=== PATIENT | male | born 2005 | race African-American/Black ===

== ENCOUNTER 2025-03-08 13:14 | Emergency (ER) | payer OTHER ==
[~2025-03-08] VITALS: Ht 167.6 cm; Wt 68.6 kg
[2025-03-08] MEDS ORDERED: NAPR-837 PO (14:20)
[2025-03-08] MEDS ORDERED: METH-1165 PO (14:20)
[2025-03-08] MEDS: NAPROXEN 250 MG TAB PO ONE (14:25)
[2025-03-08 14:35] VITALS: BP 112/55; TEMP 98.4; O2SAT 96
== END 2025-03-08 14:42 | disposition home or self-care (01) ==
LOC: M ED 13:14
DX: S39.012A Strain of muscle, fascia and tendon of lower back, initial encounter (principal); X50.0XXA Overexertion from strenuous movement or load, initial encounter; Z79.1 Long term (current) use of non-steroidal anti-inflammatories (NSAID); Z79.899 Other long term (current) drug therapy; Y92.009 Unspecified place in unspecified non-institutional (private) residence as the place of occurrence of the external cause; Y93.89 Activity, other specified; Y99.9 Unspecified external cause status

== ENCOUNTER 2025-04-22 09:43 | Emergency (ER) | payer OTHER ==
[~2025-04-22] VITALS: Ht 172.7 cm; Wt 67.9 kg
[~2025-04-22 09:43] MED LIST: METH-1165 PO; NAPR-837 PO
[2025-04-22] MEDS ORDERED: HOME MED LIST COMPLETE! XX SCH (11:15)
[2025-04-22 11:45] LABS: BASO # 0.0 10^3/uL (0.0-0.2); BASO % 0.1 % (0.0-1.0); EOS # 0.0 10^3/uL (0.0-0.5); EOS % 0.0 % (0.0-3.0); LYMPH # 0.4 10^3/uL (1.5-5.0); LYMPH % 4.6 % (24.0-44.0); MONO # 0.5 10^3/uL (0.0-0.8); MONO % 5.4 % (2.0-8.0); NEUTROPHILS # 7.8 10^3/uL (1.5-8.5); NEUTROPHILS % 89.7 % (36.0-66.0); PLATELET COUNT, AUTOMATED 181 10^3/uL (150-450)
[2025-04-22] MEDS: KETOROLAC 30 MG/ML 1 ML VIAL IV ONE (11:45)
[2025-04-22] MEDS: ONDANSETRON 4MG 2ML VIAL IV ONE (11:45)
[2025-04-22] MEDS: NS (Normal Saline) 0.9% 1,000 ML IV ONE ×2 (11:45→15:05)
[2025-04-22 12:11] LABS: ALT/SGPT 33 U/L (7.0-40); AST/SGOT 23 U/L (<34); CALCIUM LEVEL 9.5 MG/DL (8.5-10.1); CARBON DIOXIDE LEVEL 26 MMOL/L (20-31); CHLORIDE LEVEL 104 MMOL/L (98-107); CREATININE FOR GFR 0.97 MG/DL (0.70-1.30); GLOMERULAR FILTRATION RATE > 90.0 (>60); POTASSIUM SERUM 4.2 MMOL/L (3.5-5.1); SODIUM LEVEL 139 MMOL/L (136-145)
[2025-04-22] MEDS ORDERED: ISOVUE-370 76% 100 ML VIAL As Ordered ONE (14:20)
[2025-04-22 16:36] VITALS: BP 109/60; TEMP 99.8; O2SAT 100
[2025-04-22] MEDS ORDERED: PEPC1TAB5 PO (16:37)
[2025-04-22] MEDS ORDERED: ONDA-282 PO (16:37)
== END 2025-04-22 16:39 | disposition home or self-care (01) ==
LOC: M ED 10:40
DX: A08.4 Viral intestinal infection, unspecified (principal); Z79.83 Long term (current) use of bisphosphonates; Z79.899 Other long term (current) drug therapy
CPT/HCPCS: 70450; 74177; 80048; 80076; 83690; 85025; 93041; 96361; 96374; 99285; J1885; J2405; Q9967